=== PATIENT | male | born 1950 | race Caucasian/White ===

== ENCOUNTER → 2024-03-04 09:15 | Outpatient (BNVA) | payer MEDICARE, SELFPAY | PROVIDERS: PCP Family Medicine; Visit Provider Podiatrist Foot & Ankle Surgery | DX: M79.672 Pain in left foot (principal); M20.22 Hallux rigidus, left foot | CPT/HCPCS: 73630; 99203 ==

== ENCOUNTER → 2024-03-25 09:27 | Outpatient (BNVA) | payer MEDICARE, SELFPAY | PROVIDERS: PCP Family Medicine; Visit Provider Podiatrist Foot & Ankle Surgery | DX: M20.22 Hallux rigidus, left foot; M79.672 Pain in left foot; M21.42 Flat foot [pes planus] (acquired), left foot | CPT/HCPCS: 99213 ==

== ENCOUNTER 2024-05-31 13:51 | Outpatient (CLI) | payer MEDICARE, MEDICAID, SELFPAY | END 2024-05-31 13:52 | disposition home or self-care (01) | LOC: SPT 13:51 | PROVIDERS: PCP Family Medicine; Visit Provider Podiatrist Foot & Ankle Surgery | DX: Z46.89 Encounter for fitting and adjustment of other specified devices (principal); M21.41 Flat foot [pes planus] (acquired), right foot; M21.42 Flat foot [pes planus] (acquired), left foot | CPT/HCPCS: L3030 ==

== ENCOUNTER → 2024-06-23 10:15 | Outpatient (BNVA) | payer MEDICARE, MEDICAID, SELFPAY | PROVIDERS: PCP Family Medicine; Visit Provider Podiatrist Foot & Ankle Surgery | DX: M20.22 Hallux rigidus, left foot; M21.42 Flat foot [pes planus] (acquired), left foot | CPT/HCPCS: 99213 ==

== ENCOUNTER → 2024-10-25 15:11 | Outpatient (BNVA) | payer MEDICARE, MEDICAID, SELFPAY | PROVIDERS: PCP Family Medicine; Referring Provider Family Medicine; Visit Provider Psychiatry & Neurology Neurology | DX: M79.642 Pain in left hand (principal); R29.898 Other symptoms and signs involving the musculoskeletal system; M79.602 Pain in left arm; M62.549 Muscle wasting and atrophy, not elsewhere classified, unspecified hand | CPT/HCPCS: 95913 ==